=== PATIENT | male | born 1955 | race Caucasian/White ===

== ENCOUNTER → 2017-10-21 | Outpatient (CLI) | payer OTHER ==
[~2017-10-21] MED LIST: ASCORBIC ACID500 M2 PO; GLUCOSAMINE & C1 CA1 PO
--- NOTE | 2017-10-21 15:32 | RADIOLOGY REPORT PS360 ---
CHEST(2 VIEWS-NOT PORTABLE) HISTORY: CP, RT ARM PAIN ORDERING PHYSICIAN: Moses Whiting MD PATIENT AGE: 62 years COMPARISON: 08/03/2012 FINDINGS: The cardiomediastinal silhouette and pulmonary vascularity are within normal limits. No lobar consolidation or collapse. There is minimal atelectatic or fibrotic change in the left lower lobe. Degenerative change thoracic spine. IMPRESSION: Mild atelectatic or fibrotic change in the left lower lobe otherwise negative chest
--- NOTE | 2017-10-21 15:58 | CARDIOVASCULAR REPORT ---
"Venous Exam Indications: 729.5 Pain in axillary area.. pain, burning for several months. IMPRESSIONS 1. There is no evidence of significant reflux. 2. No evidence of deep or superficial vein thrombosis involving the veins of the right upper extremity Right upper extremity venous duplex. Doppler flow study including spectral analysis, color and warner scale imaging. Location: Vascular laboratory. Patient status: Outpatient. Tables: Venous flow and imaging: + + + |Location |Flow properties | + + + |Right internal jugular|Normal phasicity; spontaneous; compressible | + + + |Right subclavian |Normal phasicity; spontaneous; normal | | |augmentation; compressible | + + + |Right axillary |Normal phasicity; spontaneous; normal | | |augmentation; compressible | + + + |Right brachial |Normal phasicity; spontaneous; normal | | |augmentation; compressible | + + + |Right cephalic |Normal phasicity; spontaneous; normal | | |augmentation; compressible | + + + |Right basilic |Normal phasicity; spontaneous; normal | | |augmentation; compressible | + + + |Right radial |Compressible | + + + |Right ulnar |Compressible | + + + (Report amended ) Electronically signed by: Thomas Meyer [id number]"
== END ==
LOC: RT 14:56
DX: R07.9 Chest pain, unspecified (principal); M79.601 Pain in right arm